=== PATIENT | male | born 1955 | race Caucasian/White ===

== ENCOUNTER 2018-02-11 08:35 | Day surgery (SDC) | payer BC ==
[2018-02-11] MEDS ORDERED: PROPOFOL 10 MG/ML VIAL IV ONE (08:36)
[2018-02-11] MEDS ORDERED: LIDOCAINE 2% MDV (20MG/ML) 20ML VIAL IV ONE (08:36)
--- NOTE | 2018-02-15 07:20 | Operative Note ---
DATE OF SURGERY: 02/11/2018 SURGEON: Daquan Joe MD OPERATION: COLONOSCOPY. INDICATIONS: This is a 64-year-old male with history of colon polyps who presented for surveillance colonoscopy. POSTOPERATIVE DIAGNOSES: 1. Three 6-8 mm sessile polyps in the ascending colon that were removed by cold snare. 2. Otherwise normal colon. ANESTHESIA: Sedation is per Anesthesia. Pulse oximetry was monitored throughout the procedure to maintain O2 saturation of 90% or greater. Supplemental oxygen was administered via nasal cannula. Cardiac and vital signs were monitored throughout the duration of the procedure, and they were stable. The procedure of colonoscopy and risks and alternatives of the procedure, including the risk of bleeding and perforation, among others, were explained to the patient who voiced understanding and agreed to have the procedure done. Physical examination was performed, and the patient was found stable for sedation. PROCEDURE: The patient was placed in the left lateral position. Sedation was initiated. A digital rectal exam was performed and showed some mild external hemorrhoids with no palpable rectal masses. An Olympus PCF-180AL colonoscope was then inserted into the rectum under direct visualization. It was advanced to the cecum without difficulty. The ileocecal valve and appendiceal orifice were identified and photographed. The colonic mucosa was carefully examined upon introduction of the colonoscope. In the ascending colon were three 6-8 mm polyps that were noted and removed by cold snare. There were no other lesions noted. The colonoscope was then withdrawn while carefully examining the colonic mucosal surfaces. No other lesions were noted. In the rectum, retroflexion was performed and grade 1 internal hemorrhoids were noted. The colonoscope was then withdrawn and the procedure was terminated. The patient tolerated the procedure well without any immediate complications. He remained with stable vital signs and was transferred to the recovery room. RECOMMENDATIONS: 1. The patient is to have a repeat colonoscopy for surveillance in 3 years. Thank you for allowing me to participate in the care of your patient. CC: DO FRANCISCA Moeller
== END 2018-02-11 10:50 | disposition home or self-care (01) ==
LOC: HOP 08:35
PROVIDERS: ATTEND Internal Medicine Gastroenterology
DX: Z86.010 Personal history of colon polyps (principal); D12.2 Benign neoplasm of ascending colon; I10 Essential (primary) hypertension; E78.00 Pure hypercholesterolemia, unspecified